=== PATIENT | male | born 1935 | race Two or more races ===

== ENCOUNTER → 2024-11-02 | Outpatient (CLI) | payer MEDICARE ==
[~2024-11-02] VITALS: Ht 170.2 cm; Wt 100.7 kg
[2024-11-02] MEDS: REGADENOSON 0.4 MG/5 ML SYRG IV ONE ×2 (11:05→11:06)
--- NOTE | 2024-11-02 14:02 | DVHSR ---
APPROVED REPORT Exam: Nuclear Stress Test BMI: 0 Stress Test Details HR Max Heart Rate (APMHR): 132.415673 bpm Target HR (85% APMHR): 112.064281 bpm BP ECG Stress ECG Conclusion lvef 41% inferior wall ischemia noted NM EXAM: Myocardial Perfusion REST/STRESS Imaging Protocol: Rest Tc-99m/Stress Tc-99m 1 day Resting Data Rest SPECT myocardial perfusion imaging was performed in supine position 70 minutes following the int ravenous injection of 11.3 mCi of Tc-99m Sestamibi. Time of rest injection: 0930 Time of rest imagin Administration Route: IV Administration Site: Left AC Pharmacologic Stress Pharmacologic stress test was performed by injecting Regadenoson 0.4 mg IV push followed by the intra venous injection of 32.5 mCi of Tc-99m Sestamibi. Time of stress injection: 1050 Time of stress imagin Administration Route: IV Administration Site: Left AC Gated Stress SPECT was performed 65 minutes after stress injection. The images were gated to evaluate regional wall motion and calculate left ventricular ejection fracti on. Nuclear Conclusion Nuclear Findings: positive for ischemia lvef 41% inferior wall ischemia noted
== END | disposition home or self-care (01) ==
LOC: XY 09:05
PROVIDERS: ATTEND Internal Medicine
DX: Z01.810 Encounter for preprocedural cardiovascular examination (principal); I25.9 Chronic ischemic heart disease, unspecified; I10 Essential (primary) hypertension
CPT/HCPCS: 78452; 93017; A9500; J2785

== ENCOUNTER → 2024-12-13 | Outpatient (CLI) | payer MEDICARE ==
[2024-12-13 08:29] LABS: Hematocrit 43.0 % (41.0-53.0); Hemoglobin 14.4 g/dL (13.5-17.5); Mean Corpuscular Hemoglobin 29.7 pg (28.0-32.0); Mean Corpuscular Volume 88.5 fL (80.0-100.0); Nucleated Red Blood Cells % 0.1 %
[2024-12-13 12:18] LABS: Alanine Aminotransferase 15 U/L (7-40); Albumin 3.8 g/dL (3.2-4.8); Alkaline Phosphatase 73 U/L (46-116); Anion Gap 7 (5-15); Calcium 10.2 mg/dL (8.7-10.4); Carbon Dioxide 28 mmol/L (20-31); Chloride 103 mmol/L (98-107); Glucose 87 mg/dL (74-106); Sodium 138 mmol/L (136-145); Total Protein 8.0 g/dL (5.7-8.2); Triglycerides 87 mg/dL (< 150)
[2024-12-13 12:19] LABS: Bilirubin, Total 0.5 mg/dL (0.2-1.0); HDL Cholesterol 57 mg/dL (40-59)
[2024-12-13 12:22] LABS: Free T3 3.15 pg/mL (2.3-4.2)
[2024-12-13 12:23] LABS: Free T4 (Free Thyroxine) 1.34 ng/dL (0.89-1.76)
[2024-12-13 12:24] LABS: BUN/Creatinine Ratio 15.1 (10.0-20.0)
[2024-12-13 12:37] LABS: Blood Urea Nitrogen 24 mg/dL (9-23); Cholesterol 229 mg/dL (< 200); Potassium 5.4 mmol/L (3.5-5.1)
== END | disposition home or self-care (01) ==
LOC: LAB 07:58
PROVIDERS: ATTEND Internal Medicine
DX: I10 Essential (primary) hypertension (principal); E78.5 Hyperlipidemia, unspecified
CPT/HCPCS: 36415; 80053; 80061; 84439; 84443; 84481; 85025

== ENCOUNTER 2024-12-26 12:58 | Outpatient (CLI) | payer MEDICARE ==
[2024-12-26 13:35] LABS: Chloride 101 mmol/L (98-107); Potassium 4.6 mmol/L (3.5-5.1); Sodium 137 mmol/L (136-145)
[2024-12-26 13:36] LABS: Anion Gap 7 (5-15); Calcium 9.8 mg/dL (8.7-10.4); Carbon Dioxide 29 mmol/L (20-31)
[2024-12-26 13:41] LABS: Glucose 80 mg/dL (74-106)
[2024-12-26 13:52] LABS: BUN/Creatinine Ratio 17.7 (10.0-20.0); Blood Urea Nitrogen 22 mg/dL (9-23)
[2024-12-28 10:07] LABS: Prostate Specific Antigen 8.4 ng/mL (0.0-4.0)
== END 2024-12-26 17:00 | disposition home or self-care (01) ==
LOC: LAB 12:58
PROVIDERS: ATTEND Internal Medicine
DX: I12.9 Hypertensive chronic kidney disease with stage 1 through stage 4 chronic kidney disease, or unspecified chronic kidney disease (principal); N18.32 Chronic kidney disease, stage 3b; N40.1 Benign prostatic hyperplasia with lower urinary tract symptoms; R33.8 Other retention of urine
CPT/HCPCS: 36415; 80048; 84153; 84154

== ENCOUNTER 2025-01-02 12:30 | Outpatient (CLI) | payer MEDICARE ==
[2025-01-04 14:23] LABS: Urine Protein, UAD Negative (Negative)
== END 2025-01-02 17:00 | disposition home or self-care (01) ==
LOC: LAB 12:30
PROVIDERS: ATTEND Internal Medicine
DX: N40.0 Benign prostatic hyperplasia without lower urinary tract symptoms (principal)
CPT/HCPCS: 81001

== ENCOUNTER 2025-02-02 08:48 | Outpatient (CLI) | payer MEDICARE | END 2025-02-02 17:00 | disposition home or self-care (01) | LOC: LAB 08:48 | PROVIDERS: ATTEND Internal Medicine Gastroenterology | DX: K62.5 Hemorrhage of anus and rectum (principal); G89.3 Neoplasm related pain (acute) (chronic); R19.4 Change in bowel habit; Z12.11 Encounter for screening for malignant neoplasm of colon | CPT/HCPCS: 82378 ==

== ENCOUNTER 2025-02-12 17:04 | Inpatient (IN) | payer MEDICARE ==
[~2025-02-12] VITALS: Ht 170.2 cm; Wt 111.0 kg
--- NOTE | 2025-02-12 19:08 | ED.PDOC ---
History of Present Illness HPI Comments This is an 89-year old male with past medical history of hypertension, hypothyroidism, dyslipidemia, CAD who presented to the ED with the chief complaint of uncontrolled hypertension, bilateral lower extremity swelling and non healing wound on weinberg of right extremity. He states that he has had a non healing wound on weinberg of right lower extremity since March 2024 with some discharge but no pain. He also mentions having high blood pressure at home despite increasing his lisinopril dose form 10mg po bid to 60md po bid.He was recommended to come to the ED by his PCP Dr Scherer for accelerated hypertension and cellulitis and to rule out DVT. Chief Complaint: Lower Extremity Time Seen by MD: 18:50 Allergies: Coded Allergies: NO KNOWN ALLERGIES (Unverified , 11/02/24) Information Source: Patient Mode of Arrival: Ambulatory Severity: Mild Timing: Days Duration: Since onset Prehospital treatment: None Past Medical History PAST MEDICAL HISTORY: CAD, CHF, High Lipids, HTN, Thyroid Surgical History: Denies all surgeries Family History Family History: Reviewed,noncontributory to illness Social History Smoker: Non-Smoker Alcohol: Denies ETOH Use Drugs: Denies Drug Use Lives In: Home Constitutional: denies: chills, diaphoresis, fatigue, fever, malaise, sweats, weakness, others EENTM: denies: blurred vision, double vision, ear bleeding, ear discharge, ear drainage, ear pain, ear ringing, eye pain, eye redness, hearing loss, mouth pain, mouth swelling, nasal discharge, nose bleeding, nose congestion, nose pain, photophobia, tearing, throat pain, throat swelling, voice changes, others Respiratory: denies: cough, hemoptysis, orthopnea, SOB at rest, shortness of breath, SOB with excertion, stridor, wheezing, others Cardiovascular: denies: chest pain, dizzy spells, diaphoresis, Dyspnea on exertion, edema, irregular heart beat, left arm pain, lightheadedness, p alpitations, PND, syncope, others Gastrointestinal: denies: abdomen distended, abdominal pain, blood streaked bowels, constipated, diarrhea, dysphagia, difficulty swallowing, hematemesis, melena, nausea, poor appetite, poor fluid intake, rectal bleeding, rectal pain, vomiting, others Genitourinary: denies: burning, dysuria, flank pain, frequency, hematuria, incontinence, penile discharge, penile sore, pain, testicle pain, testicle swelling, urgency, others Neurological: denies: dizziness, fainting, headache, left sided numbness, left sided weakness, numbness, paresthesia, pre-existing deficit, right sided numbness, right sided weakness, seizure, speech problems, tingling, tremors, weakness, others Musculoskeletal: denies: back pain, gout, joint pain, joint swelling, muscle pain, muscle stiffness, neck pain, others Integumetry: reports: wounds, others (bilateral lower extremity edema); denies: bruises, change in color, change in hair/nails, dryness, laceration, lesions, lumps, rash Allergic/Immunocompromised: denies: Difficulty Healing, Frequent Infections, Hives, Itching, others Hematologic/Lymphatic: denies: anemia, blood clots, easy bleeding, easy bruising, swollen glands, others Endocrine: denies: excessive hunger, excessive sweating, excessive thirst, excessive urination, flushing, intolerance to cold, intolerance to heat, unexplained weight gain, unexplained weight loss, others Psychiatric: denies: anxiety, bipolar disorder, depression, hopeless, panic disorder, schizophrenia, sleepless, suicidal, others Physical Exam General Appearance: Obese HEENT: Normal ENT Inspection, Other (uses hearing aid) Neck: Full Range of Motion, Non-Tender, Normal Inspection Respiratory: Chest Non-Tender, Decreased Breath Sounds, No Respiratory Distress Cardiovascular: No Murmur, Regular Rate/Rhythm Breast Exam: Normal Gastrointestinal: Non Tender, Normal Bowel Sounds Genitalia: Deferred Pelvic: Deferred Rectal: Deferred Extremities: Inflammation, Leg edema, Non-tender, Pedal edema Neurologic: No Motor Deficits, No Sensory Deficits Cerebellar Function: Normal Reflexes: Normal Skin: Other (bluish discoloration of right weinberg with open wound) Lymphatic: No Adenopathy Was a procedure done? Was a procedure done?: No Differential Dx Considerations may include: cellulitis, DVT, CHF exacerbation, HTN emergency/urgency X-Ray, Labs, Meds, VS Vital Signs Date Time Temp Pulse Resp B/P (MAP) Pulse Ox O2 Delivery O2 Flow Rate FiO2 02/12/25 17:17 98.1 94 16 189/110 97 98.1 Time of 1ST Reevaluation: 19:05 Reevaluation 1ST: Unchanged Patient Education/Counseling: Diagnosis, Treatment, Prognosis Family Education/Counseling: No Family Present SEPSIS Sepsis Screen Date sepsis recognized/suspect: Feb 12, 2025 Time Sepsis recognized/suspect: 1722 Recent Procedure: No On Antibiotic Therapy: No Respiratory Rate >20: No Heart Rate >90: No Temp<36 C (96.8 F) or >38.3 C: No SBP <90 or MAP <65 mmHG: No New Acute Mental Status Change: No Is the patient on CPAP, BIPAP,: No Physician Orders Complete Blood Count (02/12/25 18:51) Basic Metabolic Panel (02/12/25 18:51) B-Type Natriuretic Peptide (02/12/25 18:51) Chest Xray 1 View (02/12/25 18:51) Bilat Lower Dvt (02/12/25 18:51) Hydralazine Injection (Apresoline Inject (02/12/25 19:00) Vital Signs Date Time Temp Pulse Resp B/P (MAP) Pulse Ox O2 Delivery O2 Flow Rate FiO2 02/12/25 17:17 98.1 94 16 189/110 97 98.1 Departure 1 Departure Time of Disposition: 18:55 Impression: Primary Impression: Cellulitis Additional Impressions: Accelerated hypertension CHF exacerbation DVT (deep venous thrombosis) Disposition: 30 STILL A PATIENT Condition: Fair Critical Care Note Critical Care Time?: No Stability Stability form required: EMELY Wu RESIDENT Feb 12, 2025 19:07
[2025-02-12 20:00] LABS: Hematocrit 42.0 % (41.0-53.0); Hemoglobin 14.4 g/dL (13.5-17.5); Mean Corpuscular Hemoglobin 31.1 pg (28.0-32.0); Mean Corpuscular Volume 90.5 fL (80.0-100.0); Nucleated Red Blood Cells % 0.3 %
[2025-02-12] MEDS: FUROSEMIDE 20 MG TAB PO ONE (20:33)
[2025-02-12 20:34] LABS: Chloride 104 mmol/L (98-107); Potassium 4.1 mmol/L (3.5-5.1); Sodium 141 mmol/L (136-145)
[2025-02-12] MEDS: hydrALAZINE HCL 20 MG/ML VL IV ONE (20:34)
--- NOTE | 2025-02-12 20:34 | DVH ---
CLINICAL HISTORY: bilateral lower extremity swelling TECHNIQUE: Color and duplex doppler imagine of the bilateral lower extremity veins was performed. Vessel compression and augmentation if possible was also performed. COMPARISON: None FINDINGS: Right Lower Extremity: Right common femoral vein: Normal compressibility and flow. Right superficial femoral vein: Normal compressibility and flow. Right popliteal vein: Normal compressibility and flow. Proximal calf veins demonstrate flow. Left Lower Extremity: Left common femoral vein: Normal compressibility and flow. Left superficial femoral vein: Normal compressibility and flow. Left popliteal vein: Normal compressibility and flow. Proximal calf veins demonstrate flow. IMPRESSION: Pain NO SONOGRAPHIC EVIDENCE FOR DEEP VENOUS THROMBOSIS IN THE BILATERAL LOWER EXTREMITY VEINS.
[2025-02-12 20:35] VITALS: PULSE 66; RESP 16; O2SAT 98
[2025-02-12 20:35] LABS: Anion Gap 9 (5-15); Carbon Dioxide 28 mmol/L (20-31)
[2025-02-12 20:36] LABS: Calcium 9.8 mg/dL (8.7-10.4)
[2025-02-12 20:41] LABS: BUN/Creatinine Ratio 22.4 (10.0-20.0); Blood Urea Nitrogen 28 mg/dL (9-23); Glucose 82 mg/dL (74-106)
--- NOTE | 2025-02-12 21:20 | DVH ---
CHEST RADIOGRAPH INDICATION: CHF TECHNIQUE: Single frontal view of the chest was obtained COMPARISON: None FINDINGS: Lines and Tubes: Bipolar pacemaker in place with pulse generator over the left chest. Lungs: No focal consolidation. Pleura: No effusion. No pneumothorax. Cardiomediastinal contours: Unremarkable Bones: No acute osseous abnormality. IMPRESSION: 1. No acute cardiopulmonary disease. 2. No prior studies 3. Mildly prominent interstitial markings right base.
[2025-02-13] VITALS (7 sets, daily range): BP systolic 125–158; BP diastolic 67–84; PULSE 65–76; RESP 12–20; TEMP 97.4–98; O2SAT 94–96
[2025-02-13] MEDS: SPIRONOLACTONE 25 MG TAB PO ONE (03:00)
[2025-02-13] MEDS: hydrALAZINE HCL 20 MG/ML VL IV ONE (03:50)
--- NOTE | 2025-02-13 04:45 | DVHHPRES ---
History of Present Illness Resident Creating Document: JUN TINEO RESIDENT History of Present Illness Ye Hanson is an 89 year old maleWith past medical history of coronary artery disease, benign prostate hypertrophy, dyslipidemia, hypertension , hypothyroidism presented to the hospital with complaints of swelling and redness the right leg and uncontrolled hypertension. He states that he has had a non healing wound on weinberg of right lower extremity since March 2024 with some discharge but no pain. He reports that he has had a lumbar fracture 25 years back post which his lower limbs are numb. He was recommended to come to the ED by his PCP Dr Scherer for accelerated hypertension and cellulitis and to rule out DVT. He was previously advised by Dr. Hartmann, the voltage inspector to undergo angiogram after the stress test with the patient refused. He is scheduled to undergo prostate surgery by urologist, Dr. Newman in April. PMHx:coronary artery disease, benign prostate hypertrophy, dyslipidemia, hypertension , hypothyroidism PSHx: Pacemaker Family history: lung cancer in mother Social history: ex-smoker, 37 pack-year smoking history, admits to daily alcohol use. Lives alone. Home medication: Lisinopril, levothyroxine Allergic history: no known allergies Review of Systems Review of Systems General: patient denies fever, fatigue, weaknes, sweating, any recent changes in appetite and weight HEENT: No headaches, visiual changes, hearing loss, tinnitus, nasal congestion and discharge, and sore throat. Cardiovascular: Denies chest pain, palpitations, dyspnea on exertion, orthopnea, or claudication. Respiratory: No cough, and wheezing. Gastrointestinal: Denies nausea, vomiting, dysphagia, odynophagia, heartburn, abdominal pain, flatulence, bloating, diarrhea, constipation, change in stool, or blood in stool. Genitourinary: No dysuria, hematuria, discharge, frequency, urgency, nocturia, incontinence, and urinary retention. Endocrine: No heat or cold intolerance, polydipsia, polyuria, and polyphagia. Neurological: No dizziness, extremity weakness and numbness, tremors, gait disturbance, seizures, and memory impairment. Psychiatric: Denies depression, anxiety,or insomnia. Musculoskeletal: complains of swelling and redness in right leg Skin: No rashes, itching, skin lesion, changes in hair, nail, skin texture and breast. Hematologic/Lymphatic: Denies easy bruising, bleeding tendencies, or lymph node enlargement. Allergies: Coded Allergies: NO KNOWN ALLERGIES (Unverified , 11/02/24) Medications Current Medications Medications Dose Ordered Sig/Giancarlo Route Start Time Stop Time Status Last Admin Dose Admin Enoxaparin Sodium 40 mg DAILY SC 02/13/25 10:00 Lisinopril 20 mg BID PO 02/13/25 10:00 Nifedipine 60 mg DAILY PO 02/13/25 10:00 Furosemide 20 mg DAILY IV 02/13/25 10:00 Clindamycin Phosphate 50 ml @ 50 mls/hr Q8HR IV 02/13/25 06:00 Spironolactone 25 mg DAILY PO 02/13/25 10:00 Exam Vital Signs Vital Signs Date Time Temp Pulse Resp B/P (MAP) Pulse Ox O2 Delivery O2 Flow Rate FiO2 02/13/25 03:50 182/83 02/13/25 02:41 98.5 74 16 96 98.5 02/12/25 20:35 Room Air* 0 21 Exam General Appearance: Alert, Oriented X3, Cooperative, No acute distress HEENT: Atraumatic, PERRLA, EOMI, Mucous membrane moist/pink Respiratory: Clear to auscultation, Normal air movement Cardiovascular: Regular rate, Normal S1, Normal S2, No murmurs, no chest wall tenderness Abdominal: Normal bowel sounds, Soft, No tenderness, No hepatospenomegaly, No masses Extremities: erythema and edema in the right calf Skin: No rashes, No breakdown, No significant lesion Neuro: Normal gait, Normal speech, Strength at 5/5 X4 ext, Normal tone, Sensation intact, Cranial nerves 3-12 NL, Reflexes 2+ Psych/Mental Status: Mental status NL, Mood NL Labs/Xrays Labs Test 02/12/25 19:19 Range/Units White Blood Count 6.6 4.4-10.8 10^3/uL Red Blood Count 4.64 4.5-5.90 10^6/uL Hemoglobin 14.4 13.5-17.5 g/dL Hematocrit 42.0 41.0-53.0 % Mean Corpuscular Volume 90.5 80.0-100.0 fL Mean Corpuscular Hemoglobin 31.1 28.0-32.0 pg Mean Corpuscular Hemoglobin Concent 34.4 32.0-36.0 g/dL Red Cell Distribution Width 16.8 H 11.8-14.3 % Platelet Count 216 140-450 10^3/uL Mean Platelet Volume 7.8 6.9-10.8 fL Neutrophils (%) (Auto) 60.8 37.0-80.0 % Lymphocytes (%) (Auto) 24.6 10.0-50.0 % Monocytes (%) (Auto) 8.9 0.0-12.0 % Eosinophils (%) (Auto) 4.8 0.0-7.0 % Basophils (%) (Auto) 0.9 0.0-2.0 % Neutrophils # (Auto) 4.0 1.6-8.6 10 ^3/uL Lymphocytes # (Auto) 1.6 0.4-5.4 10 ^3/uL Monocytes # (Auto) 0.6 0-1.3 10 ^3/uL Eosinophils # (Auto) 0.3 0-0.8 10 ^3/uL Basophils # (Auto) 0.1 0-0.2 10 ^3/uL Nucleated Red Blood Cells 0.3 % Sodium Level 141 136-145 mmol/L Potassium Level 4.1 3.5-5.1 mmol/L Chloride Level 104 98-107 mmol/L Carbon Dioxide Level 28 20-31 mmol/L Anion Gap 9 5-15 Blood Urea Nitrogen 28 H 9-23 mg/dL Creatinine 1.25 0.700-1.30 mg/dL Glomerular Filtration Rate Calc 55 >90 mL/min BUN/Creatinine Ratio 22.4 H 10.0-20.0 Serum Glucose 82 74-106 mg/dL Calcium Level 9.8 8.7-10.4 mg/dL B-Type Natriuretic Peptide 141.52 0-100 pg/mL SEPSIS Sepsis Screen Date sepsis recognized/suspect: Feb 12, 2025 Time Sepsis recognized/suspect: 172 Recent Procedure: No On Antibiotic Therapy: No Respiratory Rate >20: No Heart Rate >90: No Temp<36 C (96.8 F) or >38.3 C: No SBP <90 or MAP <65 mmHG: No New Acute Mental Status Change: No Is the patient on CPAP, BIPAP,: No Physician Orders Admit (02/12/25 23:17) Allergies (02/12/25 23:17) Code Status (02/12/25 23:17) Enoxaparin Sodium (Lovenox) (02/13/25 10:00) Complete Blood Count (02/13/25 04:00) Comprehensive Metabolic Panel (02/13/25 04:00) Condition: Fair (02/12/25 23:17) Stool Occult Blood (02/13/25 02:48) Hemoglobin A1c (02/13/25 02:48) PTPTT (02/13/25 02:48) Drug Screen (02/13/25 02:48) Urinalysis (02/13/25 02:48) * Wound Consult (02/13/25 ) Wound Culture W/ Gs (02/13/25 02:48) Blood Culture (02/13/25 02:48) Urine Bacterial Culture (02/13/25 02:48) Thyroid Stimulating Hormone (02/13/25 02:48) Lipid Panel (02/13/25 04:00) Lisinopril Tablet (Zestril Tablet) (02/13/25 10:00) Magnesium (02/13/25 04:00) Nifedipine Er (Procardia Xl (Time-Releas (02/13/25 10:00) Furosemide Injection (Lasix Injection) (02/13/25 10:00) Clindamycin 600mg Iv (Cleocin Iv) (02/13/25 06:00) Spironolactone (Aldactone) (02/13/25 10:00) Psa Total+% Free (02/13/25 04:36) Vital Signs Date Time Temp Pulse Resp B/P (MAP) Pulse Ox O2 Delivery O2 Flow Rate FiO2 02/13/25 03:50 182/83 02/13/25 02:41 98.5 74 16 200/99 (132) 96 98.5 Laboratory Tests Test 02/12/25 19:19 White Blood Count 6.6 10^3/uL (4.4-10.8) Medications Medications Dose Ordered Sig/Giancarlo Route Start Time Stop Time Status Last Admin Dose Admin Furosemide 20 mg ONCE ONCE PO 02/12/25 19:30 02/12/25 19:57 DC 02/12/25 20:33 20 MG Hydralazine HCl 10 mg ONCE ONCE IV 02/12/25 19:00 02/12/25 19:57 DC 02/12/25 20:34 10 MG Hydralazine HCl 10 mg ONCE ONCE IV 02/13/25 03:00 02/13/25 03:05 DC 02/13/25 03:50 10 MG Assessment/Plan Assessment/Plan Assessment and plan Cellulitis IV clindamycin Wound culture Wound consult Blood culture, urine culture Possible acute on chronic HFrEF Volume overload due to above Lasix held IV fluids Hypertensive emergency Essential hypertension lisinopril 20 mg b.i.d. Nifedipine 60 mg once daily Spironolactone 25 mg once daily Target in-hospital blood pressure less than 140/90 History of coronary artery disease EKG follow up with PCP on discharge Hypothyroidism Continue home medications Benign prostatic hypertrophy Scheduled for surgery on April Dyslipidemia Not on any home medication Follow lipid panel PUD prophylaxis: not needed DVT prophylaxis: Levonox 40mg Barriers to discharge: Medical diagnosis and management in progress. Patient lives with self. Independent for ADL. PT and SW consult as needed. PCP: Dr. Scherer Specialist Relevent To Admission: none Case discussed with Dr. Kamara. Code Status: Full Code. Complex patient care discussion needed. Spend total 35 minutes for bedside assessment, case discussion and management. Plan discussed with: Patient My Orders Orders - JUN TINEO RESIDENT Procedure Category Date Status Time Admit ADMIT 02/12/25 Transmitted 23:17 Allergies CYNTHIA 02/12/25 In Process 23:17 Code Status CODE 02/12/25 Transmitted 23:17 Enoxaparin Sodium PHA 02/13/25 In Process (Lovenox) 10:00 Complete Blood Count LAB 02/13/25 Logged 04:00 Comprehensive LAB 02/13/25 Logged Metabolic Panel 04:00 Condition: Fair CYNTHIA 02/12/25 In Process 23:17 Stool Occult Blood LAB 02/13/25 Uncollected 02:48 Hemoglobin A1c LAB 02/13/25 Logged 02:48 PTPTT LAB 02/13/25 Logged 02:48 Drug Screen LAB 02/13/25 Logged 02:48 Urinalysis LAB 02/13/25 Logged 02:48 * Wound Consult CONS 02/13/25 Transmitted Wound Culture W/ Gs LINH 02/13/25 Uncollected 02:48 Blood Culture [facility] 02/13/25 Uncollected 02:48 Urine Bacterial LINH 02/13/25 Uncollected Culture 02:48 Thyroid Stimulating LAB 02/13/25 Logged Hormone 02:48 Lipid Panel LAB 02/13/25 Logged 04:00 Lisinopril Tablet PHA 02/13/25 In Process (Zestril Tablet) 10:00 Magnesium LAB 02/13/25 Logged 04:00 Nifedipine Er PHA 02/13/25 In Process (Procardia Xl 10:00 Furosemide Injection PHA 02/13/25 In Process (Lasix Injection) 10:00 Clindamycin 600mg Iv PHA 02/13/25 In Process (Cleocin Iv) 06:00 Spironolactone PHA 02/13/25 In Process (Aldactone) 10:00 Psa Total+% Free LAB 02/13/25 Logged 04:36 Visit Coding STANDARD RES Billing Provider: SHAI KAMARA MD Date of Service if different f: Feb 13, 2025 Common Visit Codes: [id number] INP/OBS CARE (HIGH) Secondary Visit Codes: [id number] CARE PLAN 30 MINUTES JUN TINEO RESIDENT Feb 13, 2025 04:45
[2025-02-13] MEDS: CLINDAMYCIN 600MG IV 50 ML IV SCH (06:14)
[2025-02-13 06:25] LABS: Hematocrit 43.3 % (41.0-53.0); Hemoglobin 15.0 g/dL (13.5-17.5); Mean Corpuscular Hemoglobin 31.0 pg (28.0-32.0); Mean Corpuscular Volume 89.6 fL (80.0-100.0); Nucleated Red Blood Cells % 0.0 %
[2025-02-13 06:40] LABS: Alanine Aminotransferase 18 U/L (7-40); Albumin 3.9 g/dL (3.2-4.8); Alkaline Phosphatase 66 U/L (46-116); Anion Gap 10 (5-15); BUN/Creatinine Ratio 16.7 (10.0-20.0); Blood Urea Nitrogen 22 mg/dL (9-23); Calcium 10.0 mg/dL (8.7-10.4); Carbon Dioxide 27 mmol/L (20-31); Chloride 104 mmol/L (98-107); Magnesium 2.4 mg/dL (1.6-2.6); Potassium 3.6 mmol/L (3.5-5.1); Sodium 141 mmol/L (136-145); Triglycerides 67 mg/dL (< 150)
[2025-02-13 06:41] LABS: Bilirubin, Total 0.6 mg/dL (0.2-1.0)
[2025-02-13 06:48] LABS: Cholesterol 229 mg/dL (< 200); Glucose 136 mg/dL (74-106); HDL Cholesterol 73 mg/dL (40-59); INR 1.02 (0.9-1.15); Partial Thromboplastin Time 28.7 SEC (24.5-34.5); Prothrombin Time 10.8 sec (9.3-11.8); Total Protein 8.2 g/dL (5.7-8.2)
[2025-02-13 10:27] LABS: Free T4 (Free Thyroxine) 0.87 ng/dL (0.89-1.76)
[2025-02-13 10:28] LABS: Free T3 2.91 pg/mL (2.3-4.2)
[2025-02-13] MEDS: ENOXAPARIN SOD 40 MG/0.4 ML SYRINGE SC SCH (11:11)
[2025-02-13] MEDS: LISINOPRIL 20 MG TAB PO SCH (11:13)
[2025-02-13] MEDS: SPIRONOLACTONE 25 MG TAB PO SCH (11:13)
[2025-02-13] MEDS: FUROSEMIDE 20 MG/2 ML VIAL IV SCH (11:14)
[2025-02-13 12:15] LABS: Amphetamine Screen, Urine Neg (NEGATIVE); Barbiturate Scree,Urine Neg (NEGATIVE); Benzodiazephine Screen, Urine Neg (NEGATIVE); Cannabinoid Screen, Urine Neg (NEGATIVE); Cocaine Screen, Urine Neg (NEGATIVE); Opiate Scree,Urine Neg (NEGATIVE); Phencyclidine Screen, Urine Neg (NEGATIVE)
[2025-02-13 12:22] LABS: Urine Protein, UAD Negative (Negative)
[2025-02-13] MEDS ORDERED: ASCO500T11 PO (12:36)
[2025-02-13] MEDS ORDERED: MULT-1018 PO (12:36)
[2025-02-13] MEDS ORDERED: ASPI325T6 PO (12:36)
[2025-02-13] MEDS ORDERED: LISI10TA34 PO (12:36)
[2025-02-13] MEDS ORDERED: LEVO150T10 PO (12:36)
--- NOTE | 2025-02-13 16:16 | DVHPNRES ---
Progress Note Date Seen: Feb 13, 2025 Resident Creating Document: MELA SMYTH RESIDENT Medical Necessity Reason Pt with a Central, PICC or Fol: No Subjective Review of Systems Mr. Hanson is an 89 year old male with prior medical history of CAD, benign prostatic hypertrophy, dyslipidemia, hypertension, and hypothyroidism, who presented to [facility] Emergency room from his PCP's, Dr. Scherer, office due to swelling and redness of the right calf. The patient states he had an accident with trauma to his weinberg while working in his backyard in March with subsequent presentation of redness, swelling, and blistering on the anterior aspect of his right weinberg. He states the wound has not healed and has progressively worsened. Is now associated with swelling, redness, and warmth, however he denies any pain. He went to a follow up appointment with his PCP, who upon seeing his leg, sent him to the emergency department. On evaluation in the ED, he is afebrile, normocardic, hypertensive, saturating adequately on room air. Initial labs are within normal range. for Chest x-ray shows no acute cardiopulmonary disease. Bilateral lower extremity venous Doppler ultrasound shows no evidence for DVT. the patient was started on IV antibiotics, Lasix, and antihypertensives for improved BP control. He was admitted for further work up and management. PMHx: CAD, BPH, Dyslipidemia, hypertension, and hypothyroidism PSHx: Pacemaker Allergies: Denies Social history: Patient states he smoked cigarettes for almost 40 years with cessation in 1985, refers previous heavy alcohol use, denies any previous drug use. States he lives alone and feels safe. Home medications: Lisinopril, Levothyroxine PCP: Dr. Scherer 02/13/2025: Patient seen at bedside. He states he is well, complains of intermittent leg cramps. He is afebrile, normocardic, slightly hypertensive but more controlled, saturating adequately on room air. Follow up labs are significant for mildly elevated creatinine, elevated TSH, and altered lipid panel. Wound care has been consulted. We will continue to monitor. Review of Systems: Constitutional: Denies weight loss, fever and chills. HEENT: Denies changes in vision and hearing. Respiratory: Denies shortness of breath and cough Cardiovascular: Denies chest discomfort or palpitations GI: Denies abdominal distention, abdominal pain, diarrhea : Denies dysuria and urinary frequency. Musculoskeletal: refers intermittent leg cramps Skin: Denies rash and pruritus. Neurological: denies dizziness headache vision or hearing problems Objective vital signs Vital Sign Date Time Temp Pulse Resp B/P (MAP) Pulse Ox O2 Delivery O2 Flow Rate FiO2 02/13/25 13:30 98.0 65 16 139/80 (99) 94 98.0 02/13/25 12:10 Room Air* 0 21 medications Current Medications Medications Dose Ordered Sig/Giancarlo Route Start Time Stop Time Status Last Admin Dose Admin Enoxaparin Sodium 40 mg DAILY SC 02/13/25 10:00 02/13/25 11:11 40 MG Lisinopril 20 mg BID PO 02/13/25 10:00 02/13/25 11:13 20 MG Nifedipine 60 mg DAILY PO 02/13/25 10:00 02/13/25 11:12 60 MG Clindamycin Phosphate 50 ml @ 50 mls/hr Q8HR IV 02/13/25 06:00 02/13/25 14:33 50 MLS/HR Spironolactone 25 mg DAILY PO 02/13/25 10:00 02/13/25 11:13 25 MG Magnesium Sulfate/ Dextrose 100 ml @ 100 mls/hr Q1HR IV 02/13/25 15:00 02/13/25 16:59 UNV Furosemide 20 mg DAILY PO 02/14/25 10:00 UNV Examination General: The patient alert and oriented in person place and time. Patient following commands HEENT: Normocephalic, atraumatic, normal reactive pupils, EOM intact, pink conjunctiva, pink moist mucous membrane Respiratory/pulmonary: Bilateral chest expansion, no pain on palpation of chest wall, clear lungs bilaterally, vesicular murmurs present in almost all lung louis, no associated crackles or wheezes. Cardiovascular: Normal RRR, normal S1 and S2, no murmurs Abdomen: Obese, Abdomen nondistended, normal bowel sounds, soft, there is no pain to palpation in any of the abdominal quadrants, no palpable masses. Extremities: No deformities, there is no peripheral edema present at the lower extremities, normal pulses Skin: presence of erythematous rash on the anterior surface of the right calf, with blisters weeping serous fluid, warm to the touch, slightly painful to palpation Neurological: Intact cranial nerves with no focal neurologic deficits laboratory and microbiology Laboratory Tests 02/13/25 05:17 Test 02/13/25 05:17 Range/Units Serum Glucose 136 H 74-106 mg/dL Problem List/Assessment/Plan Problem List/Assessment/Plan Assessment and Plan: Cellulitis of right calf - Clindamycin 600 mg IV q.8 hours - Wound cultures have been ordered - Wound Care has been consulted Hypertensive urgency, resolved - Hydralazine 10 mg IV once - Nifedipine 60 mg p.o. daily - Lisinopril 20 mg p.o. b.i.d. Questionable acute on chronic HFrEF - Echocardiogram 12/05/2024: Left ventricular systolic performance is mildly diminished, EF is about 40%, there is anterior hypokinesis underlying overall hypokinesis, RV function is normal, mild aortic insufficiency with moderate tricuspid regurgitation, right ventricular systolic pressure of 35 mmHg, mild mitral regurgitation. - Furosemide 20 mg IV daily, discontinued - Furosemide 20 mg p.o. daily - Lisinopril 20 mg p.o. b.i.d. - Spironolactone 25 mg p.o. daily Hyperlipidemia - Atorvastatin 40 mg p.o. daily Hypothyroidism - Levothyroxine 150 mcg PO qAM Morbid obesity, BMI 39.5 - I have counseled the patient on healthy lifestyle modifications Nutrition: Cardiac diet GI prophylaxis: Not indicated DVT prophylaxis: Lovenox 40 mg SC daily Goals of care discussed with the patient for over 35 minutes. FULL CODE. Case discussed with Dr. Kamara Plan discussed with: Patient, Other (Nurse) My Orders My Orders Orders - MELA SMYTH RESIDENT Procedure Category Date Status Time Magnesium Sulfate PHA 02/13/25 Logged 1gm/100ml 15:00 Potassium LAB 02/13/25 Logged 14:47 Furosemide Tablet PHA 02/14/25 Logged (Lasix Tablet) 10:00 Cardiac DIET 02/13/25 Transmitted Diet-2gna,Lofat,Lochol Dinner Visit Coding STANDARD RES Billing Provider: SHAI KAMARA MD Date of Service if different f: Feb 13, 2025 Common Visit Codes: [id number] INP/OBS CARE(HIGH) MELA SMYTH RESIDENT Feb 13, 2025 16:16 SHAI KAMARA MD Feb 20, 2025 15:43
[2025-02-13] MEDS: MAGNESIUM SULFATE 1GM/100ML 100 ML IV SCH (16:42)
[2025-02-13] MEDS: ATORVASTATIN 20 MG TAB PO SCH (21:26)
[2025-02-14 01:00] VITALS: BP 133/67; PULSE 62; RESP 18; TEMP 97.4; O2SAT 92
[2025-02-14 05:00] VITALS: BP 145/77; PULSE 79; RESP 18; TEMP 97.4; O2SAT 95
[2025-02-14] MEDS: LEVOTHYROXINE SODIUM 50 MCG TAB PO SCH (05:26)
[2025-02-14 06:57] LABS: Hematocrit 41.5 % (41.0-53.0); Hemoglobin 14.5 g/dL (13.5-17.5); Mean Corpuscular Hemoglobin 31.1 pg (28.0-32.0); Mean Corpuscular Volume 89.2 fL (80.0-100.0); Nucleated Red Blood Cells % 0.1 %
[2025-02-14 07:14] LABS: Anion Gap 8 (5-15); Carbon Dioxide 26 mmol/L (20-31); Chloride 105 mmol/L (98-107); Potassium 3.6 mmol/L (3.5-5.1); Sodium 139 mmol/L (136-145)
[2025-02-14 07:16] LABS: Calcium 9.4 mg/dL (8.7-10.4)
[2025-02-14 07:21] LABS: BUN/Creatinine Ratio 19.4 (10.0-20.0); Glucose 102 mg/dL (74-106)
[2025-02-14 07:23] LABS: Blood Urea Nitrogen 24 mg/dL (9-23)
[2025-02-14 08:00] VITALS: PULSE 85; RESP 19; O2SAT 95
[2025-02-14 08:07] LABS: Prostate Specific Antigen 16.2 ng/mL (0.0-4.0)
[2025-02-14] MEDS: FUROSEMIDE 20 MG TAB PO SCH (08:13)
[2025-02-14 09:00] VITALS: BP 123/66; PULSE 85; RESP 19; TEMP 97.8; O2SAT 95
[2025-02-14] MEDS: SODIUM CHLORIDE 0.9% 1,000 ML IV ONE (12:14)
[2025-02-14 13:00] VITALS: BP 133/72; PULSE 65; RESP 17; TEMP 97.9; O2SAT 95
[2025-02-14] MEDS ORDERED: NIFE90TA75 PO (14:24)
[2025-02-14] MEDS ORDERED: ASPI81CH59 PO (14:24)
[2025-02-14] MEDS ORDERED: CLIN1CAP70 PO (14:24)
--- NOTE | 2025-02-14 14:36 | DVHDSRES ---
Discharge Summary Date of Admission Resident Creating Document: MELA SMYTH RESIDENT Feb 12, 2025 at 23:17 Date of Discharge: Feb 14, 2025 Labs/Diagnostic Data: Laboratory Results Test 02/14/25 05:39 02/13/25 09:55 02/13/25 09:36 02/13/25 05:17 White Blood Count 7.6 10^3/uL (4.4-10.8) Red Blood Count 4.65 10^6/uL (4.5-5.90) Hemoglobin 14.5 g/dL (13.5-17.5) Hematocrit 41.5 % (41.0-53.0) Mean Corpuscular Volume 89.2 fL (80.0-100.0) Mean Corpuscular Hemoglobin 31.1 pg (28.0-32.0) Mean Corpuscular Hemoglobin Concent 34.8 g/dL (32.0-36.0) Red Cell Distribution Width 16.4 % (11.8-14.3) Platelet Count 216 10^3/uL (140-450) Mean Platelet Volume 7.8 fL (6.9-10.8) Neutrophils (%) (Auto) 60.8 % (37.0-80.0) Lymphocytes (%) (Auto) 22.2 % (10.0-50.0) Monocytes (%) (Auto) 11.5 % (0.0-12.0) Eosinophils (%) (Auto) 4.9 % (0.0-7.0) Basophils (%) (Auto) 0.6 % (0.0-2.0) Neutrophils # (Auto) 4.6 10 ^3/uL (1.6-8.6) Lymphocytes # (Auto) 1.7 10 ^3/uL (0.4-5.4) Monocytes # (Auto) 0.9 10 ^3/uL (0-1.3) Eosinophils # (Auto) 0.4 10 ^3/uL (0-0.8) Basophils # (Auto) 0 10 ^3/uL (0-0.2) Nucleated Red Blood Cells 0.1 % Sodium Level 139 mmol/L (136-145) Potassium Level 3.6 mmol/L (3.5-5.1) Chloride Level 105 mmol/L (98-107) Carbon Dioxide Level 26 mmol/L (20-31) Anion Gap 8 (5-15) Blood Urea Nitrogen 24 mg/dL (9-23) Creatinine 1.24 mg/dL (0.700-1.30) Glomerular Filtration Rate Calc 56 mL/min (>90) BUN/Creatinine Ratio 19.4 (10.0-20.0) Serum Glucose 102 mg/dL (74-106) Calcium Level 9.4 mg/dL (8.7-10.4) Creatine Kinase 187 U/L (46-171) Urine Color Light-yellow (Yellow) Urine Clarity Clear (Clear) Urine pH 6.5 (5.0-9.0) Urine Specific [place] 1.014 (1.001-1.035) Urine Protein Negative (Negative) Urine Ketones Negative (Negative) Urine Blood Negative /uL (Negative) Urine Nitrite Negative (Negative) Urine Bilirubin Negative (Negative) Urine Urobilinogen Normal mg/dL (Negative) Urine Leukocyte Esterase Negative /uL (Negative) Urine RBC 3 /hpf (0 - 3) Urine Microscopic WBC 1 /HPF (0-3) Urine Squamous Epithelial Cells None seen /hpf (<5) Urine Bacteria None seen /hpf (None Seen) Urine Glucose Normal mg/dL (Normal) Urine Opiates Screen Neg (NEGATIVE) Urine Fentanyl Screen Neg (NEGATIVE) Urine Barbiturates Screen Neg (NEGATIVE) Urine Phencyclidine Screen Neg (NEGATIVE) Urine Amphetamines Screen Neg (NEGATIVE) Urine Benzodiazepines Screen Neg (NEGATIVE) Urine Cocaine Screen Neg (NEGATIVE) Urine Cannabinoids Screen Neg (NEGATIVE) Free Thyroxine (T4) Calculated 0.87 ng/dL (0.89-1.76) Free Triiodothyronine (T3) pg/mL 2.91 pg/mL (2.3-4.2) Prothrombin Time 10.8 sec (9.3-11.8) Prothrombin Time INR 1.02 (0.9-1.15) Activated Partial Thromboplast Time 28.7 SEC (24.5-34.5) Hemoglobin A1c 5.4 % A1C (<5.7) Magnesium Level 2.4 mg/dL (1.6-2.6) Total Bilirubin 0.6 mg/dL (0.2-1.0) Aspartate Amino Transferase (AST) 23 U/L (13-40) Alanine Aminotransferase (ALT) 18 U/L (7-40) Alkaline Phosphatase 66 U/L (46-116) Total Protein 8.2 g/dL (5.7-8.2) Albumin 3.9 g/dL (3.2-4.8) Triglycerides Level 67 mg/dL (< 150) Cholesterol Level 229 mg/dL (< 200) LDL Cholesterol 143 mg/dL (< 100) HDL Cholesterol 73 mg/dL (40-59) Free Prostate Specific Antigen 5.52 ng/mL (N/A) Percent Free Prostate Specific Ag 34.1 % (.) Prostate Specific Antigen Total 16.2 ng/mL (0.0-4.0) Thyroid Stimulating Hormone (TSH) 14.73 uIU/mL (0.55-4.78) Test 02/12/25 19:19 B-Type Natriuretic Peptide 141.52 pg/mL (0-100) Other Laboratory Tests 02/14/25 05:39 Brief Hx & Hospital Course: Mr. Hanson is an 89 year old male with prior medical history of CAD, benign prostatic hypertrophy, dyslipidemia, hypertension, and hypothyroidism, who presented to [facility] Emergency room from his PCP's, Dr. Scherer, office due to swelling and redness of the right calf. The patient states he had an accident with trauma to his weinberg while working in his backyard in March with subsequent presentation of redness, swelling, and blistering on the anterior aspect of his right weinberg. He states the wound has not healed and has progressively worsened. Is now associated with swelling, redness, and warmth, however he denies any pain. He went to a follow up appointment with his PCP, who upon seeing his leg, sent him to the emergency department. On evaluation in the ED, he is afebrile, normocardic, hypertensive, saturating adequately on room air. Initial labs are within normal range. for Chest x-ray shows no acute cardiopulmonary disease. Bilateral lower extremity venous Doppler ultrasound shows no evidence for DVT. the patient was started on IV antibiotics, Lasix, and antihypertensives for improved BP control. He was admitted for further work up and management. PMHx: CAD, BPH, Dyslipidemia, hypertension, and hypothyroidism PSHx: Pacemaker Allergies: Denies Social history: Patient states he smoked cigarettes for almost 40 years with cessation in 1985, refers previous heavy alcohol use, denies any previous drug use. States he lives alone and feels safe. Home medications: Lisinopril, Levothyroxine Hospital course: Patient admitted due to right calf cellulitis. Patient treated conservatively with IV antibiotic. Venous duplex lower extremity on 01/2025 showed no sonographic evidence for deep vein thrombosis in bilateral lower extremity. Patient pain and swelling significantly improved and patient able to walk without any device. Also having hypertensive emergency during admission, started home medication including nifedipine initially started 30 mg then increase to 90 mg and became stable. Echocardiogram 12/05/2024: Left ventricular systolic performance is mildly diminished, EF is about 40%, there is anterior hypokinesis underlying overall hypokinesis, RV function is normal, mild aortic insufficiency with moderate tricuspid regurgitation, right ventricular systolic pressure of 35 mmHg, mild mitral regurgitation. Started statin for hyperlipidemia but patient refused. During hospitalization patient treated both acute and chronically medical condition. Patient got maximum benefit during inpatient treatment. During evaluation on 02/14/2025, patient denies any nausea, vomiting, headache, fever, abdominal pain, dysuria, any focal weakness. Advised patient to continue oral antibiotic(Clindamycin) 2 weeks after discharge from hospital. Patient is hemodynamically stable for discharge. Patient has received maximum benefit from inpatient treatment. Time was given to answer patient's questions and concerns in layman terms and explained by RN. Patient verbalized understanding and agreed with treatment and follow-up. Patient was recommended to return to ER if he experiences any worsening symptoms not limited to current symptoms. Follow-up with PCP and outpatient continuity clinic within week after discharge. Medications sent to the pharmacy, patient advised to resume home medication. Physical examination: Constitutional: No: Fever, Chills, Sweats, Weakness, Malaise, Other Eyes: No: Pain, Vision change, Conjunctivae inflammation, Eyelid inflammation, Other, Redness ENT: No: Ear pain, Ear discharge, Nose pain, Nose discharge, Nose congestion, Mouth pain, Mouth swelling, Throat pain, Throat swelling, Other Respiratory: Shortness of breath; No: Cough, Dry, SOB with excertion, Wheezing, Hemoptysis, Pleuritic Pain, Sputum, Wheezing, Other Cardiovascular: No: Chest Pain, Palpitations, Orthopnea, Paroxysmal Noc. Dyspnea, Edema, Lt Headedness, Other Gastrointestinal: No: Nausea, Vomiting, Abdominal Pain, Diarrhea, Constipation, Melena, Hematochezia, Other Genitourinary: No Dysuria, No Frequency, No Incontinence, No Hematuria, No Retention, No Other Musculoskeletal: No: other, neck pain, shoulder pain, arm pain, back pain, hand pain, leg pain, foot pain Skin: Mild erythematous rash anterior surface and calf of right leg but no active discharge or bleeding. Neurological: No: Weakness, Numbness, Incoordination, Change in speech, Confusion, Seizures, Other More than 23 minute spent with patient. case discussed with patient, nurse, Dr. Kamara. Operations or Procedures ORDERING PHYSICIAN: EMELY MCKEON RESIDENT PROCEDURE(s): CXR1 - CHEST XRAY 1 VIEW REASON: CHF? ORDER NUMBER(s): [id number], ACCESSION NUMBER(s): [id number] CHEST RADIOGRAPH INDICATION: CHF TECHNIQUE: Single frontal view of the chest was obtained COMPARISON: None FINDINGS: Lines and Tubes: Bipolar pacemaker in place with pulse generator over the left chest. Lungs: No focal consolidation. Pleura: No effusion. No pneumothorax. Cardiomediastinal contours: Unremarkable Bones: No acute osseous abnormality. IMPRESSION: 1. No acute cardiopulmonary disease. 2. No prior studies 3. Mildly prominent interstitial markings right base. ATED BY: ROBERTO GRANADO Jr., DO DICTATED DATE/TIME: 02/12/252117 ORDERING PHYSICIAN: EMELY MCKEON PROCEDURE(s): BLDVT - BiLat Lower DVT REASON: bilateral lower extremity swelling ORDER NUMBER(s): [id number], ACCESSION NUMBER(s): [id number] CLINICAL HISTORY: bilateral lower extremity swelling TECHNIQUE: Color and duplex doppler imagine of the bilateral lower extremity veins was performed. Vessel compression and augmentation if possible was also performed. COMPARISON: None FINDINGS: Right Lower Extremity: Right common femoral vein: Normal compressibility and flow. Right superficial femoral vein: Normal compressibility and flow. Right popliteal vein: Normal compressibility and flow. Proximal calf veins demonstrate flow. Left Lower Extremity: Left common femoral vein: Normal compressibility and flow. Left superficial femoral vein: Normal compressibility and flow. Left popliteal vein: Normal compressibility and flow. Proximal calf veins demonstrate flow. IMPRESSION: Pain NO SONOGRAPHIC EVIDENCE FOR DEEP VENOUS THROMBOSIS IN THE BILATERAL LOWER EXTREMITY VEINS. ATED BY: JACQUELYN GUAN MD DICTATED DATE/TIME: 02/12/252031 Condition at Discharge: Stable Final Diagnosis/Problems List Right leg cellulitis Hypertensive urgency, resolved Acute on chronic systolic heart failure, EF 40% Hyperlipidemia Hypothyroidism Morbid obesity, BMI 39.5 Discharge Disposition: Home Discharge Instruct/Medications Diet: Cardiac 2g Na,low cholest Activity: No Restrictions, As Tolerated Follow Up/Referral: pcp within week after discharge. Follow-up outpatient continuity clinic within 1 week after discharge Scheduled Ascorbic Acid (Vitamin C Tablet), 1 TAB PO DAILY, (Reported) Aspirin (Aspirin Low Dose), 81 MG PO DAILY Clindamycin Hcl (Clindamycin Hcl), 300 MG PO TID Levothyroxine Sodium (Levothyroxine Sodium), 150 MCG PO QAM, (Reported) Lisinopril (Lisinopril), 10 MG PO BID, (Reported) Multiple Vitamin (Multivitamins), 1 TAB PO DAILY, (Reported) Nifedipine (Nifedipine Er), 1 TAB PO DAILY Discontinued Medications Aspirin (Aspirin), 325 MG PO DAILY, (Reported) Discharge Statement: "Patient was advised to return to the ER or call 911 if any headaches, dizziness, shortness of breath, chest pain, abdominal pain, bleeding, fevers, or worsening of medical condition. Patient was counseled about treatment plan, medications, possible side effects, patientverbalized understanding. All questions were answered to the best of my ability. This discharge took greater then 30 minutes in planning, reviewing documentation, counseling the patient, and discussing with other team members." ASSESSMENT ASSESSMENT Assessment Right leg cellulitis Visit Coding STANDARD RES Billing Provider: SHAI KAMARA MD Date of Service if different f: Feb 14, 2025 Common Visit Codes: 00180-DEP/OBS DISCH DAY >30min JASPER TOWNSEND RESIDENT Feb 14, 2025 14:35 SHAI KAMARA MD Feb 16, 2025 23:54
[2025-02-14 15:50] VITALS: BP 173/77; PULSE 65; RESP 17; TEMP 36.6; O2SAT 95
== END 2025-02-14 16:55 | disposition home or self-care (01) | DRG 602 ==
LOC: ER 17:04 → OVERFLOW 23:17 → WEST WING 02-13 11:44
PROVIDERS: ADMIT Student in an Organized Health Care Education/Training Program; ATTEND Internal Medicine
DX: L03.115 Cellulitis of right lower limb (principal); I50.23 Acute on chronic systolic (congestive) heart failure; I11.0 Hypertensive heart disease with heart failure; E03.9 Hypothyroidism, unspecified; E66.01 Morbid (severe) obesity due to excess calories; I16.0 Hypertensive urgency; N40.0 Benign prostatic hyperplasia without lower urinary tract symptoms; E78.5 Hyperlipidemia, unspecified; Z68.38 Body mass index [BMI] 38.0-38.9, adult; I25.10 Atherosclerotic heart disease of native coronary artery without angina pectoris; Z95.0 Presence of cardiac pacemaker; Z79.899 Other long term (current) drug therapy
CPT/HCPCS: 36415; 71045; 80048; 80053; 80061; 80307; 81001; 82550; 83036; 83735; 83880; 84132; 84154; 84439; 84443; 84481; 85025; 85610; 85730; 87086; 93970; 96374; 96375; G0378; J3490